=== PATIENT | female | born 2000 | race Caucasian/White ===

== ENCOUNTER → 2020-12-26 11:58 | Outpatient (BNVA) | payer MEDICAID, SELFPAY | PROVIDERS: Family Provider Nurse Practitioner Family; PCP Nurse Practitioner Family; Visit Provider Urology | DX: N39.9 Disorder of urinary system, unspecified (principal); N39.0 Urinary tract infection, site not specified | CPT/HCPCS: 81003; 87077; 87086; 87184 ==

== ENCOUNTER → 2021-02-05 12:03 | Outpatient (BNVA) | payer MEDICAID, SELFPAY | PROVIDERS: Family Provider Nurse Practitioner Family; PCP Nurse Practitioner Family; Visit Provider Nurse Practitioner Family | DX: Z20.2 Contact with and (suspected) exposure to infections with a predominantly sexual mode of transmission (principal); N89.8 Other specified noninflammatory disorders of vagina; K12.2 Cellulitis and abscess of mouth | CPT/HCPCS: 87070; 87205; 87491; 87591; 87661 ==

== ENCOUNTER → 2021-11-20 10:42 | Outpatient (BNVA) | payer MEDICAID, SELFPAY | PROVIDERS: Family Provider Nurse Practitioner Family; PCP Nurse Practitioner Family; Visit Provider Nurse Practitioner | DX: J02.0 Streptococcal pharyngitis (principal) | CPT/HCPCS: 87070 ==